=== PATIENT | male | born 1960 | race Caucasian/White ===

== ENCOUNTER 2022-05-26 22:06 | Emergency (ER) | payer MEDICAID, SELFPAY ==
[2022-05-26] VITALS (13 sets, daily range): BP systolic 107–123; BP diastolic 69–90; PULSE 53–59; RESP 16; TEMP 36.7; O2SAT 95–99
--- NOTE | 2022-05-26 22:00 | RT.EKG_ITS ---
APPROVED REPORT Exam: Resting ECG Reason for Exam: sob Patient Location: E HR:57 bpm ECG Measurements Heart Rate 57 AXIS IL 165 P 14 QRSd 96 QRS -56 QT 412 T 67 QTc 402 Conclusion Sinus bradycardia...rate< 60 Inferior infarct, old...Q >35mS, II III aVF sinus bradycardia, normal axis, normal intervals, non ischemic
--- NOTE | 2022-05-26 22:30 | DI.RAD_ITS ---
Exam(s) XR CHEST 2V PA LATERAL EXAM: XR CHEST 2V PA LATERAL CLINICAL HISTORY: syncope TECHNIQUE: 2D digital imaging was performed. COMPARISON: No exams were available for comparison FINDINGS: Leads overlie the chest. HEART: Normal size. Aorta: Not dilated. Mildly tortuous. PULMONARY VASCULATURE: Normal. LUNGS: Marked emphysematous changes, greatest in the upper lobes where there are large bulla. No sup erimposed infiltrate, effusion or pulmonary edema. PLEURAL SPACE: No pleural effusion or pneumothorax. BONE:Unremarkable for age. IMPRESSION: Emphysematous changes. No acute abnormality. DATA REPOSITORY: RADIATION DOSE DELIVERED:
--- NOTE | 2022-05-26 22:30 | DI.CT_ITS ---
Exam(s) CT HEAD WO EXAM: CT HEAD WO CLINICAL HISTORY: ams. TECHNIQUE: Imaging Protocol: Axial computed tomography images with coronal and sagittal reformatted images were created and reviewed COMPARISON: No exams were available for comparison FINDINGS: Ventricles and Extra axial spaces: Normal in size and morphology for the patient's age. Hemorrhage: None. Cerebral parenchyma: Normal. Midline shift: None. Brainstem/Cerebellum: Normal. Calvarium: Normal. Visualized Paranasal sinuses/Mastoids: Clear. Soft Tissues: Unremarkable. IMPRESSION: No acute intracranial process. RADIATION DOSE DELIVERED: 820.59mGy.cm Total DLP DATA REPOSITORY: All CT scans at this facility are submitted to the National Radiology Data Registry (NRDR) Dose Index Registry (DIR) with the [employer] (ACR). RADIATION OPTIMIZATION: All CT scans at this facility use at least one of these dose optimization te chniques: automated exposure control; mA and/or kV adjustment per patient size (includes targeted exa ms where dose is matched to clinical indication); or iterative reconstruction.
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
[2022-05-26 23:16] LABS: Abs Immature Grans 0.01 10^3/uL (0.0-0.06); Absolute Basophil Count 0.04 10^3/uL (0.0-0.2); Absolute Eosinophil Count 0.08 10^3/uL (0.0-0.7); Absolute Lymphocyte Count 3.63 10^3/uL (1.2-3.4); Absolute Monocyte Count 0.61 10^3/uL (0.1-0.8); Absolute Neutrophil Count 3.65 10^3/uL (1.2-6.7); Basophils % 0.5; HCT 45.1 % (40.0-50.0); HGB 15.3 g/dL (13.5-17.5); Immature Grans % 0.1; Lymphocytes % 45.3; MCH 31.5 pg (27.0-33.0); MCHC 33.9 % (32.0-36.0); MCV 93 fL (80-95); MPV 9.1 fL (8.0-11.0); Monocytes % 7.6; Neutrophils % 45.5; Platelet Count 304 10^3/uL (130-400); RBC 4.86 10^6/uL (4.36-5.78); RDW 12.5 % (11.8-14.1); RDW-SD 42.7 fL; WBC 8.02 10^3/uL (4.4-10.8)
[2022-05-26] MEDS: Normal Saline 1,000 ML 1000 ML IV (23:17)
[2022-05-26 23:39] LABS: Prothrombin Time 10.1 sec (9.3-11.0)
[2022-05-26 23:47] LABS: ALT 27 U/L (16-63); AST 30 U/L (15-37); Albumin 3.9 g/dL (3.4-5.0); Alkaline Phosphatase 121 U/L (46-116); Anion Gap 6.2 mmol/L (3-11); BUN 11 mg/dL (7-18); Bilirubin, Total 0.4 mg/dL (0.2-1.0); CO2 28.8 mmol/L (21.0-32.0); CREATININE 0.9 mg/dL (0.70-1.30); Calcium 9.7 mg/dL (8.5-10.1); Chloride 105 mmol/L (98-107); Estimated GFR 96.57 (mL/min/1.73m2); Glucose 104 mg/dL (74-106); Magnesium 2.4 mg/dL (1.8-2.4); Potassium 4.3 mmol/L (3.5-5.1); Sodium 140 mmol/L (136-145); TSH (W/Ref FT4) 5.11 uIU/mL (0.36-3.74); Total Protein 7.8 g/dL (6.4-8.2); Troponin I < 50 ng/L (<or=60)
--- NOTE | 2022-05-26 23:52 | DI.VRAD_ITS ---
PROCEDURE INFORMATION: Exam: CT Head Without Contrast Exam date and time: 05/26/2022 11:35 PM Age: 62 years old Clinical indication: Altered mental status/memory loss; Confusion or disorientation; Patient HX: AMS TECHNIQUE: Imaging protocol: Computed tomography of the head without contrast. Radiation optimization: All CT scans at this facility use at least one of these dose optimization techniques: automated exposure control; mA and/or kV adjustment per patient size (includes targeted exams where dose is matched to clinical indication); or iterative reconstruction. COMPARISON: No relevant prior studies available. FINDINGS: Brain: No intracranial hemorrhage or extra-axial fluid collection. No evidence of mass effect or midline shift. Conley-white matter differentiation is intact. Cerebral ventricles: No ventriculomegaly. Paranasal sinuses: Unremarkable. No fluid levels. Mastoid air cells: Unremarkable. Bones/joints: No acute calvarial fracture. Soft tissues: Scalp soft tissues are unremarkable. IMPRESSION: No acute intracranial pathology. Dictated and Authenticated by: Saran Horvath MD. Ordering:CHAVO Sheikh MD
--- NOTE | 2022-05-26 23:53 | DI.VRAD_ITS ---
PROCEDURE INFORMATION: Exam: XR Chest Exam date and time: 05/26/2022 11:43 PM Age: 62 years old Clinical indication: Patient HX: Syncope. AMS TECHNIQUE: Imaging protocol: Radiologic exam of the chest. Views: 2 views. COMPARISON: No relevant prior studies available. FINDINGS: Lungs: Lucencies along the superomedial left hemithorax may reflect bullous changes. No focal areas of consolidation. Pleural spaces: No pleural effusion. No pneumothorax. Heart/Mediastinum: Cardiac and mediastinal silhouettes are unremarkable. Bones/joints: No acute osseus lesion or fracture. IMPRESSION: Lucencies along the superomedial left hemithorax may reflect bullous changes. Recommend follow-up chest CT. Dictated and Authenticated by: Saran Horvath MD. Ordering:CHAVO Sheikh MD
[2022-05-26 23:54] LABS: ETHANOL BLOOD < 3.0 mg/dL (<10)
[2022-05-27] VITALS (42 sets, daily range): BP systolic 97–129; BP diastolic 57–106; PULSE 49–65; RESP 14–33; TEMP 36.7; O2SAT 90–96
[2022-05-27 00:03] LABS: D-Dimer 455 ng/mlFEU (<500)
[2022-05-27 00:11] LABS: FREE T4 1.04 ng/dL (0.76-1.46)
[2022-05-27 00:12] LABS: COVID-19 PCR Negative (Negative); Influenza A PCR Negative (Negative); Influenza B PCR Negative (Negative); RSV PCR Negative (Negative)
[2022-05-27 00:15] LABS: Source Nasopharynx
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
[2022-05-27] MEDS: clonazePAM 0.5 MG TAB PO ×2 (00:29→06:00)
== END 2022-05-27 06:04 | disposition home or self-care (01) ==
PROVIDERS: Physician Assistant; Emergency Provider Emergency Medicine
DX: F32.A Depression, unspecified (principal); F41.0 Panic disorder [episodic paroxysmal anxiety]; G47.00 Insomnia, unspecified; R06.02 Shortness of breath; R55 Syncope and collapse; Z20.822 Contact with and (suspected) exposure to COVID-19
CPT/HCPCS: 80053; 87637; 93005; 96360; 99284; 70450; 71046; 80320; 83735; 84439; 84443; 84484; 85025; 85379; 85610; 93010

== ENCOUNTER 2022-10-30 11:34 | Emergency (ER) | payer MEDICAID, SELFPAY ==
[2022-10-30 11:38] VITALS: BP 115/81; PULSE 66; RESP 15; TEMP 36.6; O2SAT 97
--- NOTE | 2022-10-30 12:11 | DI.RAD_ITS ---
Exam(s) XR FOOT LT LIMITED EXAM: XR FOOT LT LIMITED CLINICAL HISTORY: attn 1st mtp joint, pain after fall. TECHNIQUE: 2D digital imaging was performed of the left foot. Two images were obtained. AP and lat eral views were obtained. COMPARISON: No exams were available for comparison FINDINGS: BONES: No acute fracture is present. No bony destructive lesion is seen. JOINTS: No dislocation present. There are mild degenerative changes seen at the 1st MTP joint with keegan int space narrowing and osteophytes. SOFT TISSUE: Normal. IMPRESSION: No acute fracture or dislocation. DATA REPOSITORY: RADIATION DOSE DELIVERED:
--- NOTE | 2022-10-30 12:14 | ED.GENADUL_ITS ---
Discharge Plan Disposition Patient Disposition: Home Condition: Good Discharge Details Clinical Impression: Pain of left great toe Primary Care Provider: None,None ED Provider: Marko Jalloh Home Meds and New Rx's Prescriptions: No Action allopurinol 100 mg Tablet 100 mg PO DAILY Discharge Instructions Instructions: Metatarsalgia (DC) Additional Instructions: At this time the x-ray shows no evidence of fracture, however I am concerned that you may have damaged your flexor tendon for your great toe. Please utilize the walking boot for the next 1 to 2 weeks. Take Tylenol and Motrin as needed for pain. If you have continued pain after this means of treatment you may need to follow-up with an work station support specialist for further assessment. If you notice any worsening of your symptoms, or any new symptoms such as vomiting, diarrhea, fever, chills, shortness of breath, chest pain, numbness, weakness, or fainting , please return immediately to the emergency department for reevaluation. Please follow up with your primary care provider as soon as possible for reassessment and reevaluation. As always, it was a pleasure participating in your medical care today. Medical Decision Making This is a 62-year-old male who presents today for evaluation of left great toe pain. Patient states that about a week ago he was walking on slippery rocks when the majority of his weight was focused on his toes on the left foot, he pushed off in the foot was at the same time hyper dorsiflex secondary to the sleepiness of the rock. He thinks he may have heard a pop, but he did develop immediate pain around the great toe on the left foot. This continued for the next few days, and was accompanied by bruising around the base of the foot. Pain has persisted, and is present whenever he ambulates. He improved only with rest. He denies any numbness or tingling. No other complaints at this time. Demonstrates bruising beneath the great toe of the left foot and the MTP joint. Pain and tenderness there, slight limitation in flexion, he is able to bend to about 45 degrees but not able to cross the toe. He is able to call the other toes though comparatively. Concern for partial tear of the flexor digitorum longus. Will give walking boot, recommend NSAIDs for home use. Recommend follow-up with orthopedics if no improvement with this treatment modality over the next 1 to 2 weeks. Patient still demonstrates good control strength and movement of the great toe, no indication for immediate surgical intervention. Discussed red flags for which to return. I have extensively reviewed the treatment plan and discharge instructions with the patient and their family. I have addressed all patient concerns at this time. The patient and family was made aware of what symptoms to monitor for that would warrant a return to the emergency department. Discussed the plan with the patient and family, they demonstrate verbal understanding and agreement with our assessment and plan at this time. The documentation in this chart was dictated using [employer] dictation software. Please excuse any dictation errors. FINDINGS: BONES: No acute fracture is present. No bony destructive lesion is seen. JOINTS: No dislocation present. There are mild degenerative changes seen at the 1st MTP joint with joint space narrowing and osteophytes. SOFT TISSUE: Normal. IMPRESSION: No acute fracture or dislocation. HPI General Date/Time Provider Initiated Documentation: 10/30/22 11:50 . HPI Narrative: This is a 62-year-old male who presents today for evaluation of left great toe pain. Patient states that about a week ago he was walking on slippery rocks when the majority of his weight was focused on his toes on the left foot, he pushed off in the foot was at the same time hyper dorsiflex secondary to the sleepiness of the rock. He thinks he may have heard a pop, but he did develop immediate pain around the great toe on the left foot. This continued for the next few days, and was accompanied by bruising around the base of the foot. Pain has persisted, and is present whenever he ambulates. He improved only with rest. He denies any numbness or tingling. No other complaints at this time. Related Data Home Medications Medication Instructions Recorded Confirmed allopurinol 100 mg tablet 100 mg PO DAILY 10/30/22 10/30/22 Allergies Allergy/AdvReac Type Severity Reaction Status Date / Time Penicillins Allergy Unknown Other (See Unverified 10/30/22 11:43 Comment) General Stated Complaint: Orthopedic SHEELA: 4 Review of Systems All systems reviewed & are unremarkable except as noted in HPI and below PFSH All Active Problems Pain of left great toe (Acute) Social History Smoking risk assessment performed?: No Exam Narrative Exam Narrative: 1.Const: Well-nourished, Well-developed, appearing stated age 2.Eyes: PERRL, no conjunctival injection, and symmetrical lids. 3.ENT: Atraumatic external nose and ears. Moist MM. Neck: Symmetric, trachea midline, No thyromegaly. 4.CVS: +S1/S2, No murmurs or gallops. Peripheral pulses 2+ and equal in all extremities. Brisk capillary refill in all extremities. 5.RESP: Unlabored respiratory effort. Clear to auscultation bilaterally. No wheezes rales or rhonchi 6.GI: Soft, Nontender/Nondistended, No hepatosplenomegaly. No guarding or rebound. 7.MSK: Left foot demonstrates bruising beneath the left great toe and the MTP joint of the first digit. Pain with palpation at the MTP joint, pain with flexion of the great toe. Limitation of flexion of the left great toe compared to the right. Movement of all the other digits are unremarkable. Brisk capillary refill is present. Sensation intact. No other tenderness throughout the rest of the foot 8.Skin: Warm, Dry. No rashes or lesions. 9.Neuro: riprap man II-XII grossly intact. Sensation grossly intact, no focal neurologic deficits. 10.Psych: (AAO) x3. Appropriate mood and affect Course Vital Signs Vital signs: Vital Signs Temperature 36.6 C 10/30/22 11:38 Pulse 66 10/30/22 11:38 Respiratory Rate 15 10/30/22 11:38 Blood Pressure 115/81 10/30/22 11:38 Pulse Oximetry 97 10/30/22 11:38 Temperature 36.6 C 10/30/22 11:38 Temperature Source Skin 10/30/22 11:38 Pulse 66 10/30/22 11:38 Respiratory Rate 15 10/30/22 11:38 Blood Pressure 115/81 10/30/22 11:38 Pulse Oximetry 97 10/30/22 11:38 Oxygen Delivery Method Room Air 10/30/22 11:38 Oxygen Flow Rate 0 10/30/22 11:38 Pain Level 6 10/30/22 11:38
== END 2022-10-30 13:30 | disposition home or self-care (01) ==
PROVIDERS: Emergency Provider Student in an Organized Health Care Education/Training Program
DX: M79.675 Pain in left toe(s) (principal); M19.072 Primary osteoarthritis, left ankle and foot
CPT/HCPCS: 36415; 99283; 73620

== ENCOUNTER 2023-03-19 19:13 | Emergency (ER) | payer MEDICAID, SELFPAY ==
[2023-03-19] VITALS (22 sets, daily range): BP systolic 121–161; BP diastolic 76–99; PULSE 55–68; RESP 10–20; TEMP 36.4; O2SAT 92–100
--- NOTE | 2023-03-19 19:15 | RT.EKG_ITS ---
APPROVED REPORT Exam: Resting ECG Reason for Exam: SOB, anxiety Patient Location: E HR:60 bpm ECG Measurements Heart Rate 60 AXIS ND 168 P 8 QRSd 99 QRS 3 QT 404 T 80 QTc 404 Conclusion Sinus rhythm...normal P axis, V-rate 60- 99
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
[2023-03-19 19:28] LABS: Abs Immature Grans 0.03 10^3/uL (0.0-0.06); Absolute Basophil Count 0.05 10^3/uL (0.0-0.2); Absolute Lymphocyte Count 3.17 10^3/uL (1.2-3.4); Absolute Monocyte Count 0.75 10^3/uL (0.1-0.8); Absolute Neutrophil Count 4.98 10^3/uL (1.2-6.7); Basophils % 0.6; Eosinophils % 1.1; HCT 47.3 % (40.0-50.0); HGB 16.1 g/dL (13.5-17.5); Immature Grans % 0.3; Lymphocytes % 34.9; MCV 88 fL (80-95); MPV 8.9 fL (8.0-11.0); Monocytes % 8.3; Neutrophils % 54.8; Platelet Count 315 10^3/uL (130-400); RBC 5.37 10^6/uL (4.36-5.78); RDW 12.8 % (11.8-14.1); RDW-SD 41.1 fL; WBC 9.08 10^3/uL (4.4-10.8)
--- OUTSIDE RECORDS SUMMARY | 2023-03-19 19:32 | XMS_ITS | Continuity of Care Document ---
Author Name Unknown Organization [facility] Address [address] [place] [address] Encounter NCTY_AL Date(s): 11/12/22 - 11/12/22 [facility] [address] [place] [address] Discharge Disposition: Home or Self Care Attending Physician: Kalen Abdi MD Admitting Physician: Kalen Abdi MD Allergies, Adverse Reactions, Alerts No Known Medication Allergies Medications allopurinol 0 Refill(s) Start Date: 11/12/22 Status: Ordered Vital Signs Most recent to oldest [Reference Range]: 1 Temperature Temporal Artery [36-38 Deg C ] 37.1 Deg C (11/12/22 2:46 PM) Peripheral Pulse Rate [60-100 bpm] 69 bp m (11/12/22 2:46 PM) Respiratory Rate [12-24 br/min] 18 br/mi n (11/12/22 2:46 PM) Blood Pressure [90-140/60-90 mmHg] 116/8 1mmHg (11/12/22 2:46 PM) Weight Dosing 90.70 kg (11/12/22 3:06 PM) Weight Estimated 90.70 kg (11/12/22 2:46 PM) Height/Length Dosing 182.800 cm (11/12/22 3:06 PM) Height/Length Estimated 182.800 cm (11/12/22 2:46 PM) Social History Social History Type Response Tobacco Current everyday tob acco user Tobacco Use:. 1 PPD per day. Sex Male Emergency department Note * Ne [place]: PERFORM Event Display: ED Notes Authored Date: [id number] Patient Care team information Care Team Personnel Name: Luther Reza MD Position: Physician Member Role: ED Physician Address: Address: [address] [place] [phone] [place]
[2023-03-19 19:48] LABS: Salicylate 2.9 mg/dL (<2.8)
[2023-03-19 19:52] LABS: ALT 31 U/L (16-63); AST 19 U/L (15-37); Albumin 3.8 g/dL (3.4-5.0); Alkaline Phosphatase 121 U/L (46-116); Anion Gap 10.3 mmol/L (3-11); BUN 14 mg/dL (7-18); Bilirubin, Total 0.4 mg/dL (0.2-1.0); CO2 23.7 mmol/L (21.0-32.0); CREATININE 1.1 mg/dL (0.70-1.30); Calcium 9.8 mg/dL (8.5-10.1); Chloride 102 mmol/L (98-107); Estimated GFR 75.43 (mL/min/1.73m2); Glucose 157 mg/dL (74-106); Potassium 4.1 mmol/L (3.5-5.1); Sodium 136 mmol/L (136-145); TSH (W/Ref FT4) 4.18 uIU/mL (0.36-3.74); Total Protein 8.3 g/dL (6.4-8.2)
[2023-03-19 20:02] LABS: ETHANOL BLOOD < 3.0 mg/dL (<10)
[2023-03-19 20:12] LABS: Bilirubin Negative (Negative); Blood Small (Negative); Clarity Clear (Clear); Glucose Negative (Negative); Ketones Negative (Negative); Leukocyte Esterase Negative (Negative); Nitrite Negative (Negative); Specific Gravity <= 1.005 (1.005-1.025); Urobilinogen 0.2 mg/dL (Up to 0.2)
[2023-03-19 20:15] LABS: FREE T4 1.01 ng/dL (0.76-1.46)
[2023-03-19 20:21] LABS: Bacteria Few HPF (Negative); Epithelial Cells Negative HPF (Negative); WBC Negative HPF (0-5)
[2023-03-19 20:22] LABS: C & S Indicated? No; Casts Negative LPF (Negative); Crystals Negative HPF (Negative); Mucus Negative (Negative); RBC 0-2 HPF (0-2)
[2023-03-19 20:29] LABS: *AMPHETAMINES SCREEN URINE Negative (Negative); *BARBITURATES SCREEN URINE Negative (Negative); *BENZODIAZEPINES SCREEN URINE Negative (Negative); Cannabinoids THC Positive (Negative); Cocaine Screen,Urine Negative (Negative); METHADONE URINE SCREEN Negative (Negative); OPIATES URINE SCREEN Negative (Negative)
[2023-03-19 20:31] LABS: Tricyclic Antidepressants Negative (Negative)
[2023-03-19] MEDS: Melatonin 3 MG TAB PO (21:24)
[2023-03-19] MEDS: hydrOXYzine HCL 25 MG TAB PO (21:24)
== END 2023-03-19 21:24 | disposition home or self-care (01) ==
PROVIDERS: Emergency Provider Nurse Practitioner Acute Care
DX: G47.00 Insomnia, unspecified (principal); F41.9 Anxiety disorder, unspecified; F17.210 Nicotine dependence, cigarettes, uncomplicated
CPT/HCPCS: 36415; 80053; 80307; 93005; 99283; 80320; 80329; 81003; 81015; 84439; 84443; 85025; 93010

== ENCOUNTER 2023-05-23 14:48 | Outpatient (REF) | payer MEDICAID, SELFPAY ==
[2023-05-23 18:28] LABS: Abs Immature Grans 0.03 10^3/uL (0.0-0.06); Absolute Basophil Count 0.07 10^3/uL (0.0-0.2); Absolute Eosinophil Count 0.13 10^3/uL (0.0-0.7); Absolute Lymphocyte Count 3.35 10^3/uL (1.2-3.4); Absolute Monocyte Count 0.89 10^3/uL (0.1-0.8); Absolute Neutrophil Count 5.34 10^3/uL (1.2-6.7); Basophils % 0.7; Eosinophils % 1.3; HCT 48.7 % (40.0-50.0); HGB 16.3 g/dL (13.5-17.5); Immature Grans % 0.3; Lymphocytes % 34.1; MCH 29.9 pg (27.0-33.0); MCHC 33.5 % (32.0-36.0); MCV 89 fL (80-95); MPV 9.5 fL (8.0-11.0); Monocytes % 9.1; Neutrophils % 54.5; Platelet Count 324 10^3/uL (130-400); RBC 5.45 10^6/uL (4.36-5.78); RDW 12.7 % (11.8-14.1); RDW-SD 41.2 fL; WBC 9.81 10^3/uL (4.4-10.8)
[2023-05-23 18:56] LABS: ALT 31 U/L (16-63); AST 15 U/L (15-37); Albumin 3.9 g/dL (3.4-5.0); Alkaline Phosphatase 125 U/L (46-116); Anion Gap 9.1 mmol/L (3-11); BUN 14 mg/dL (7-18); Bilirubin, Total 0.4 mg/dL (0.2-1.0); CO2 28.9 mmol/L (21.0-32.0); Calcium 10.3 mg/dL (8.5-10.1); Chloride 103 mmol/L (98-107); Estimated GFR 84.57 (mL/min/1.73m2); Glucose 82 mg/dL (74-106); Potassium 4.8 mmol/L (3.5-5.1); Sodium 141 mmol/L (136-145)
== END 2023-05-23 14:49 | disposition home or self-care (01) ==
LOC: NCHCN 14:48
PROVIDERS: PCP Student in an Organized Health Care Education/Training Program; Visit Provider Student in an Organized Health Care Education/Training Program
DX: I25.10 Atherosclerotic heart disease of native coronary artery without angina pectoris (principal)
CPT/HCPCS: 80053; 85025

== ENCOUNTER → 2023-06-10 02:44 | Outpatient (CLI) | payer MEDICAID, SELFPAY ==
--- NOTE | 2023-06-10 | DI.CTLCSR_ITS ---
Exam(s) CT CHEST LUNG CANCER SCREEN EXAM: CT CHEST LUNG CANCER SCREEN CLINICAL HISTORY: F17.210 Nicotine dependence,cigarettes,uncomplicated TECHNIQUE: Imaging Protocol: Axial computed tomography images with coronal and sagittal reformatted images were created and reviewed. Low dose screening protocol. COMPARISON: CT LOW DOSE CT LUNG CANCER SCREENING from 05/21/2018 report not available. FINDINGS: Tracheobronchial tree: No bronchiectasis or mucus plugging.. Mediastinum and Sheba: No dominant adenopathy or fluid collection. Pulmonary parenchyma: No consolidation or dominant measurable mass. Large bulla at the lung apices. Small mild scarring left lower lobe. Lung Nodules: None. Pleura: No effusion. No pneumothorax. Heart: The heart is mildly dilated. Mild coronary artery calcifications are seen. Aorta: Thoracic aorta non-dilated. Upper abdomen: Unremarkable. Bones: Unremarkable for age. Soft Tissues: Unremarkable. IMPRESSION: No suspicious pulmonary nodules. Lung RADS Cat 1 - Negative: No nodules and definitely benign nodules Lung-RADS 1.0 CATEGORIES: Category 0 - Prior chest CT exam(s) being located for comparison. Category 1 - Annual screening in 12 months. No nodules or definitely benign nodules. Category 2 - Annual screening in 12 months. Benign appearance. Nodules with low likelihood of becomin g active cancer. Category 3 - 6-month follow-up. Probably benign. Short-term follow-up suggested. Nodules with low lik elihood of becoming active cancer. Category 4A - 3-month follow-up and CT/PET if >8 mm in size. Suspicious finding. Findings which requi re additional testing. Category 4B - Findings which require additional testing and tissue sampling. Category 4X - Category 3 or 4 nodules with additional features or imaging findings that increases the suspicion of malignancy. Modifier S- Potentially clinically significant findings (non lung cancer) RADIATION DOSE DELIVERED: 106.44mGy.cm Total DLP DATA REPOSITORY: All CT scans at this facility are submitted to the National Radiology Data Registry (NRDR) Dose Index Registry (DIR) with the [employer] (A[employer]). RADIATION OPTIMIZATION: All CT scans at this facility use at least one of these dose optimization te chniques: automated exposure control; mA and/or kV adjustment per patient size (includes targeted exa ms where dose is matched to clinical indication); or iterative reconstruction.
== END ==
PROVIDERS: PCP Student in an Organized Health Care Education/Training Program; Visit Provider Student in an Organized Health Care Education/Training Program
DX: Z12.2 Encounter for screening for malignant neoplasm of respiratory organs (principal); F17.210 Nicotine dependence, cigarettes, uncomplicated
CPT/HCPCS: 71271

== ENCOUNTER 2023-06-26 07:57 | Emergency (ER) | payer MEDICAID, SELFPAY ==
[2023-06-26 08:03] VITALS: BP 114/77; PULSE 69; RESP 18; O2SAT 99
--- NOTE | 2023-06-26 08:15 | DI.CT_ITS ---
Exam(s) CT ABDOMEN PELVIS W EXAM: CT ABDOMEN PELVIS W CLINICAL HISTORY: abdominal and rectal pain TECHNIQUE: Imaging Protocol: Axial computed tomography images with coronal and sagittal reformatted images were created and reviewed. CONTRAST MATERIAL: Intravenous: Omnipaque 350 Contrast volume:100 mL Oral: No COMPARISON: CT LOW DOSE CT LUNG CANCER SCREENING from 05/21/[address] CHEST LUNG CANCER SCREEN from 06/10/2023 FINDINGS: ABDOMEN: Lung Bases: There is a large bulla seen in the left lung base anteriorly. Stable scarring is seen in the left lingula and left lower lobe. Liver: Normal density. No suspicious masses are seen. Portal, Superior Mesenteric, and Splenic Veins: Unremarkable. Gallbladder and Biliary Tract: No radiodense calculus or dilation. Pancreas: Normal density, no abnormal calcifications or inflammatory process. Spleen: Normal. Adrenals: No masses seen. Kidneys: Normal size, contour and axis. No radiodense stones or obstructive uropathy. There is a 6 mm hyperdense nodule along the lateral aspect of the left kidney. There is a 5 mm hypodense nodule in the superior pole of the left kidney. This likely reflects a simple cyst. Abdominal Aorta: Abdominal portion non-dilated. Atherosclerotic calcification is present. Bowel: There are fluid-filled loops of small bowel present which may represent an ileus but also can be seen with diarrheal illness/enteritis. The stomach is incompletely distended limiting evaluation. There is no bowel wall thickening. No findings to suggest obstruction. The appendix is nondistend ed and air-filled. No appendiceal wall thickening or inflammation is seen. There are few hyperdense foci seen within the appendix which may represent appendicoliths. Peritoneal Cavity: No ascites, collection or mesenteric inflammatory response. No free air. Lymph Nodes: Within normal limits. Bones: Within normal limits for the patient's age. Soft Tissues: There is a fat containing left inguinal hernia. PELVIS: Bladder: There is mild thickening of the wall of the urinary bladder. This is nonspecific. Reproductive Organs: Prostate gland is mildly enlarged. Lymph Nodes: Within normal limits. Bones: Within normal limits for the patient's age. IMPRESSION: 1. Fluid-filled loops of small bowel. This can be seen with a diarrheal illness/enteritis. No evide nce of bowel obstruction. 2. 6 mm hyperdense nodule in the left kidney. Renal mass cannot be excluded. This may also represen t hemorrhagic or complicated cyst. Outpatient MRI of the kidneys is recommended for further evaluati on. 3. Enlarged prostate gland. 4. Mild thickening of the wall of the urinary bladder. This is nonspecific. This can be seen with c hronic bladder outlet obstruction or cystitis. Please correlate clinically. RADIATION DOSE DELIVERED: 989.94mGy.cm Total DLP DATA REPOSITORY: All CT scans at this facility are submitted to the National Radiology Data Registry (NRDR) Dose Index Registry (DIR) with the [employer] (ACR). RADIATION OPTIMIZATION: All CT scans at this facility use at least one of these dose optimization te chniques: automated exposure control; mA and/or kV adjustment per patient size (includes targeted exa ms where dose is matched to clinical indication); or iterative reconstruction.
--- NOTE | 2023-06-26 08:15 | DI.US_ITS ---
Exam(s) US SCROTUM EXAM: US SCROTUM CLINICAL HISTORY: right testicular pain, eval also for hernia. TECHNIQUE: Scrotal ultrasound performed using grayscale, color-flow and spectral Doppler analysis. COMPARISON: No exams were available for comparison FINDINGS: Right testicle: 3.7 x 3.2 x 3.1 cm Echogenicity: Normal. Contour: Smooth. Mass: None seen. Microlithiasis: None. Hydrocele: None. Variocele: None. Hernia: No peristalsing bowel loop identified. Epididymis: There is heterogeneity and increased vascularity of the right epididymis concerning for e pididymitis. Left testicle: 3.3 x 1.7 x 3.2 cm Echogenicity: Normal. Contour: Smooth. Mass: None seen. Microlithiasis: None. Hydrocele: None. Variocele: None. Hernia: No peristalsing bowel loop identified. Epididymis: Normal. There is mild diffuse scrotal thickening. DOPPLER: Color: Symmetric and uniform, no hyperemia. IMPRESSION: 1. Normal appearing bilateral testicles. 2. Findings suspicious for right epididymitis. 3. Findings were discussed with Esther Lipscomb at 10:47 a.m. on 06/26/2023. DATA REPOSITORY:
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
[2023-06-26] MEDS: HYDROmorphone 2 MG/ML SYR 1 MG IVP (08:51)
[2023-06-26] MEDS: Normal Saline 1,000 ML 1000 ML IV (08:51)
[2023-06-26 08:57] LABS: Abs Immature Grans 0.05 10^3/uL (0.0-0.06); Absolute Basophil Count 0.04 10^3/uL (0.0-0.2); Absolute Eosinophil Count 0.06 10^3/uL (0.0-0.7); Absolute Lymphocyte Count 1.65 10^3/uL (1.2-3.4); Absolute Monocyte Count 0.86 10^3/uL (0.1-0.8); Absolute Neutrophil Count 9.19 10^3/uL (1.2-6.7); Basophils % 0.3; Eosinophils % 0.5; HCT 48.2 % (40.0-50.0); HGB 16.4 g/dL (13.5-17.5); Immature Grans % 0.4; Lymphocytes % 13.9; MCV 88 fL (80-95); MPV 9.2 fL (8.0-11.0); Monocytes % 7.3; Neutrophils % 77.6; Platelet Count 271 10^3/uL (130-400); RBC 5.47 10^6/uL (4.36-5.78); RDW 12.4 % (11.8-14.1); RDW-SD 40.4 fL; WBC 11.84 10^3/uL (4.4-10.8)
[2023-06-26] MEDS: HYDROmorphone 2 MG/ML SYR IVP (09:43)
[2023-06-26 09:46] LABS: ALT 27 U/L (16-63); AST 14 U/L (15-37); Albumin 3.6 g/dL (3.4-5.0); Alkaline Phosphatase 115 U/L (46-116); Anion Gap 8.5 mmol/L (3-11); BUN 19 mg/dL (7-18); Bilirubin, Total 0.6 mg/dL (0.2-1.0); C-Reactive Protein 6.31 mg/dL (<or=0.5); CO2 27.5 mmol/L (21.0-32.0); CREATININE 1.1 mg/dL (0.70-1.30); Calcium 9.6 mg/dL (8.5-10.1); Chloride 100 mmol/L (98-107); Estimated GFR 75.43 (mL/min/1.73m2); Glucose 115 mg/dL (74-106); Lipase 53 U/L (16-77); Potassium 4.3 mmol/L (3.5-5.1); Sodium 136 mmol/L (136-145); Total Protein 8.6 g/dL (6.4-8.2)
[2023-06-26] MEDS: Normal Saline - Diluent 50 ML VIAL IJ (10:03)
[2023-06-26] MEDS: Omnipaque 350 MG/ML 100 ML BTL IJ (10:03)
[2023-06-26 11:19] VITALS: BP 131/77; PULSE 68; TEMP 36.8; O2SAT 97
[2023-06-26 11:35] VITALS: TEMP 36.8
[2023-06-26 11:38] VITALS: BP 131/77; PULSE 68; RESP 16; TEMP 36.8; O2SAT 97
[2023-06-26 11:48] LABS: Bilirubin Negative (Negative); Blood Small (Negative); Clarity Clear (Clear); Glucose Negative (Negative); Ketones Negative (Negative); Leukocyte Esterase Trace (Negative); Nitrite Negative (Negative); Urobilinogen 0.2 mg/dL (Up to 0.2); pH 5.5 (5-8)
[2023-06-26 11:53] LABS: *AMPHETAMINES SCREEN URINE Negative (Negative); *BARBITURATES SCREEN URINE Negative (Negative); *BENZODIAZEPINES SCREEN URINE Negative (Negative); Cannabinoids THC Positive (Negative); Cocaine Screen,Urine Negative (Negative); METHADONE URINE SCREEN Negative (Negative); OPIATES URINE SCREEN Positive (Negative); Tricyclic Antidepressants Negative (Negative)
[2023-06-26 12:17] LABS: Bacteria Few HPF (Negative); Epithelial Cells Rare HPF (Negative); RBC 0-2 HPF (0-2); WBC >50 HPF (0-5)
[2023-06-26 12:18] LABS: C & S Indicated? Yes; Crystals Negative HPF (Negative); Mucus Trace (Negative)
--- NOTE | 2023-06-26 17:00 | NUR.NOTE ---
Referral faxed to [facility] Urology for renal mass to be seen in 1 to 2 weeks. Nursing Note:
== END 2023-06-26 11:39 | disposition home or self-care (01) ==
PROVIDERS: Emergency Provider Physician Assistant; PCP Student in an Organized Health Care Education/Training Program
DX: N45.1 Epididymitis (principal); K59.00 Constipation, unspecified; I25.10 Atherosclerotic heart disease of native coronary artery without angina pectoris; F17.210 Nicotine dependence, cigarettes, uncomplicated
CPT/HCPCS: 36415; 80053; 80307; 83690; 96361; 96374; 96376; 99285; 74177; 76870; 81003; 81015; 85025; 86140; 87086; 99284; J1170; J3490

== ENCOUNTER 2023-11-13 11:17 | Emergency (ER) | payer MEDICAID, SELFPAY ==
[2023-11-13 11:20] VITALS: BP 116/83; PULSE 58; RESP 12; TEMP 36.4; O2SAT 96
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
[2023-11-13 11:31] VITALS: BP 116/83; PULSE 58; RESP 12; TEMP 36.4; O2SAT 96
== END 2023-11-13 12:04 | disposition home or self-care (01) ==
LOC: ER 12:07
PROVIDERS: Emergency Provider Emergency Medicine; PCP Student in an Organized Health Care Education/Training Program
DX: H57.11 Ocular pain, right eye (principal); H20.011 Primary iridocyclitis, right eye
CPT/HCPCS: 99283

== ENCOUNTER 2024-01-23 00:29 | Outpatient (CLI) | payer MEDICAID, SELFPAY ==
--- NOTE | 2024-01-23 07:00 | DI.US_ITS ---
Exam(s) US RENAL EXAM: US RENAL CLINICAL HISTORY: monitoring left renal cyst,N28.1. TECHNIQUE: Conley scale, color and spectral Doppler were used. COMPARISON: CT CT ABDOMEN PELVIS W from 06/26/2023 FINDINGS: Right kidney: 10.2cm Echogenicity: Normal Hydronephrosis: No Cyst or mass: No Nephrolithiasis: No Left kidney: 11.2cm Echogenicity: Normal Hydronephrosis: No Cyst or mass: No Nephrolithiasis: No Bladder:Normal. Prevoid vol:277 cc Postvoid vol:None cc Prostate volume 26 cc IMPRESSION: Negative renal ultrasound. The tiny renal cysts noted on CT are not visible by ultrasound. No fol low-up recommended. DATA REPOSITORY:
== END 2024-01-23 00:49 ==
LOC: DI 00:30
PROVIDERS: PCP Student in an Organized Health Care Education/Training Program; Visit Provider Nurse Practitioner Gerontology
DX: N28.1 Cyst of kidney, acquired (principal)
CPT/HCPCS: 76770

== ENCOUNTER 2024-06-23 03:17 | Emergency (ER) | payer MEDICAID, SELFPAY ==
[2024-06-23] VITALS (22 sets, daily range): BP systolic 114–140; BP diastolic 83–92; PULSE 52–72; RESP 9–25; O2SAT 92–98
--- NOTE | 2024-06-23 03:00 | RT.EKG_ITS ---
APPROVED REPORT Exam: Resting ECG Reason for Exam: short of breath Patient Location: E HR:64 bpm ECG Measurements Heart Rate 64 AXIS WV 153 P -9 QRSd 93 QRS -25 QT 405 T 81 QTc 417 Conclusion Sinus rhythm...normal P axis, V-rate 60- 99 Nonspecific T abnrm, anterolateral leads...T <-0.10mV, I aVL V2-V6 appropriate intervals no ST segment or T wave abnormalities to suggest occlusive MT
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
[2024-06-23] MEDS: LORazepam 1 MG TAB 2 MG PO (03:44)
[2024-06-23] MEDS: Simethicone 80 MG CHEW 40 MG PO (03:44)
[2024-06-23 03:45] LABS: Abs Immature Grans 0.01 10^3/uL (0.0-0.06); Absolute Basophil Count 0.04 10^3/uL (0.0-0.2); Absolute Eosinophil Count 0.11 10^3/uL (0.0-0.7); Absolute Lymphocyte Count 3.36 10^3/uL (1.2-3.4); Absolute Monocyte Count 0.69 10^3/uL (0.1-0.8); Basophils % 0.4 %; Eosinophils % 1.2 %; HCT 45.4 % (40.0-50.0); HGB 15.5 g/dL (13.5-17.5); Immature Grans % 0.1 %; Lymphocytes % 36.5 %; MCH 30.5 pg (27.0-33.0); MCHC 34.1 % (32.0-36.0); MCV 89 fL (80-95); MPV 9.2 fL (8.0-11.0); Monocytes % 7.5 %; Neutrophils % 54.3 %; Platelet Count 278 10^3/uL (130-400); RBC 5.08 10^6/uL (4.36-5.78); RDW 12.8 % (11.8-14.1); RDW-SD 41.8 fL; WBC 9.21 10^3/uL (4.4-10.8)
--- NOTE | 2024-06-23 04:06 | DI.RAD_ITS ---
Exam(s) XR CHEST 2V PA LATERAL EXAM: XR CHEST 2V PA LATERAL CLINICAL HISTORY: short of breath TECHNIQUE: 2D digital imaging was performed of the chest. Two images were obtained. PA and lateral views were obtained. COMPARISON: CR,XR XR CHEST 2V PA LATERAL from 05/26/[address] CHEST LUNG CANCER SCREEN from 06/10/[address] ABDOMEN PELVIS W from 06/26/2023 FINDINGS: MEDIASTINUM: Normal. HEART: Normal. PULMONARY VASCULATURE: Normal. LUNGS: Marked emphysematous changes are present in the lungs particularly the left lung. The lungs a re hyperinflated with flattened diaphragms consistent with underlying COPD. No focal consolidating i nfiltrates are seen. PLEURAL SPACE: No pleural effusion or pneumothorax. BONE:Within normal limits for the patient's age. OTHER FINDINGS:Normal. IMPRESSION: 1. No acute pulmonary findings. 2. Marked emphysematous changes in the lungs. DATA REPOSITORY: RADIATION DOSE DELIVERED:
[2024-06-23 04:07] LABS: ALT 29 U/L (16-63); AST 15 U/L (15-37); Albumin 3.6 g/dL (3.4-5.0); Alkaline Phosphatase 145 U/L (46-116); Anion Gap 13.5 mmol/L (3-11); BUN 13 mg/dL (7-18); Bilirubin, Total 0.52 mg/dL (0.2-1.0); CO2 22.5 mmol/L (21.0-32.0); CREATININE 1.1 mg/dL (0.70-1.30); Calcium 9.7 mg/dL (8.5-10.1); Chloride 105 mmol/L (98-107); Estimated GFR 74.96 (mL/min/1.73m2); Glucose 114 mg/dL (74-106); Magnesium 1.7 mg/dL (1.8-2.4); NT-proBNP 79 pg/mL (<300); Potassium 3.8 mmol/L (3.5-5.1); Sodium 141 mmol/L (136-145); Total Protein 7.8 g/dL (6.4-8.2); Troponin I 12 ng/L (<or=76)
[2024-06-23 04:39] LABS: Troponin I 10 ng/L (<or=76)
--- NOTE | 2024-06-23 04:44 | DI.VRAD_ITS ---
PROCEDURE INFORMATION: Exam: XR Chest Exam date and time: 06/23/2024 3:57 AM Age: 64 years old Clinical indication: Shortness of breath TECHNIQUE: Imaging protocol: Radiologic exam of the chest. Views: 2 views. COMPARISON: No relevant prior studies are available for comparison. FINDINGS: Lungs: Hyperinflated lungs. Correlate clinically for obstructive pulmonary disease. Pleural spaces: No large pleural effusion seen. Heart/Mediastinum: No cardiomegaly. Bones/joints: No acute abnormality. Gastrointestinal tract: Gas-filled bowel loops in the visualized abdomen. IMPRESSION: No acute findings to explain reported symptoms. Dictated and Authenticated by: Madison Blackburn MD. Orderin Francis Fox MD
== END 2024-06-23 08:25 | disposition home or self-care (01) ==
PROVIDERS: Emergency Provider Student in an Organized Health Care Education/Training Program; PCP Student in an Organized Health Care Education/Training Program
DX: F41.9 Anxiety disorder, unspecified (principal); R06.02 Shortness of breath; F17.210 Nicotine dependence, cigarettes, uncomplicated
CPT/HCPCS: 80053; 93005; 99284; 71046; 83735; 83880; 84484; 85025; 93010; 99283

== ENCOUNTER 2024-07-10 02:54 | Emergency (ER) | payer MEDICAID, SELFPAY ==
[2024-07-10 02:59] VITALS: BP 108/77; PULSE 62; RESP 18; TEMP 36.8; O2SAT 97
--- NOTE | 2024-07-10 03:27 | W.ED.GENAD ---
Discharge Plan Disposition Patient Disposition: Home Condition: Good Discharge Details Clinical Impression: Anxiety, Insomnia Primary Care Provider: Guido Mariee ED Provider: Dominique Blanco Home Meds and New Rx's Prescriptions: New lorazepam 0.5 mg Tablet 1.5 mg PO .FOR HOME USE-0.5MG Qty: 1 0RF Continued atorvastatin 10 mg tablet 10 mg PO DAILY allopurinol 100 mg Tablet 100 mg PO DAILY magnesium 500 mg tablet 500 mg PO DAILY multivitamin [Daily Multi-Vitamin] Tablet 1 tab PO DAILY melatonin 3 mg capsule 3 mg PO HS PRNQty: 7 0RF Discharge Instructions Instructions: Lorazepam, Anxiety, Adult ED Additional Instructions: You can take one 0.5mg lorazepam if needed at bedtime. Do not drive after taking this medication. Use extra caution at home as this medication can increase your risk of falls. Call your primary care doctor first thing Friday to schedule an appointment to be seen that day. Return to the emergency department for new or worsening symptoms. Referrals: Guido Mariee [Primary Care Provider] - [facility] General Mode of arrival: ambulatory. Date/Time Provider Initiated Documentation: 07/10/24 03:00. Limitations to Documentation: no limitations. Information obtained by: patient and old records reviewed. HPI Narrative: 64yo M with hx gout, HLD, anxiety, presenting for anxiety and insominia. Has had several months of worsening anxiety in the setting of 'being stuck at home' due to financial issues and transportation issues. Has had difficultly sleeping for 2- 3 nights, sleeping on 2-3 hours a night, and this has made the anxiety significantly worse. Associated belching and farting (mostly at night); anxiety seems somewhat improved after he belches a lot. Not currently on any anxiety medication; does have a history of panic attacks about a year ago and then several weeks ago when he was seen in this ED. Unable to followup with PCP since that visit due to transportation issues; car was finally fixed this afternoon. Denies SI/HI/AH/VH. Otherwise in his usual state of health with no fevers, chills, rash, chest pain, shortness of breath, abdominal pain, numbness, weakness, or other concerns. Related Data Home Medications ?Medication ?Instructions ?Recorded ?Confirmed allopurinol 100 mg tablet 100 mg PO DAILY 10/30/22 07/10/24 melatonin 3 mg capsule 3 mg PO HS PRN #7 caps 03/19/23 07/10/24 atorvastatin 10 mg tablet 10 mg PO DAILY 05/29/23 07/10/24 magnesium 500 mg tablet 500 mg PO DAILY 06/26/23 07/10/24 multivitamin (Daily Multi-Vitamin 1 tab PO DAILY 06/26/23 07/10/24 tablet) lorazepam 0.5 mg tablet 1.5 mg (3 x 0.5 mg) PO .FOR HOME 07/10/24 USE-0.5MG #1 tab Previous Rx's ?Medication ?Instructions ?Recorded melatonin 3 mg capsule 3 mg PO HS PRN #7 caps 03/19/23 lorazepam 0.5 mg tablet 1.5 mg (3 x 0.5 mg) PO .FOR HOME 07/10/24 USE-0.5MG #1 tab Allergies Allergy/AdvReac Type Severity Reaction Status Date / Time Lanolin (Wool alcohols) Allergy Unknown unknown Verified 07/10/24 03:03 Penicillins Allergy Unknown Other (See Verified 07/10/24 03:03 Comment) General Stated Complaint: Anxiety SHEELA: 3 Review of Systems Narrative: see HPI Exam Narrative Exam Narrative: General: Alert, well appearing, well nourished, in no acute distress. Head: Normocephalic, atraumatic Neck: Trachea midline, ?Neck supple. Cardiac: ?RRR Resp: No respiratory distress. CTAB. Abd: ?Non-distended Extremities: ?No deformities.? No peripheral edema. Neurologic: GCS 15. ? Moves all extremities freely against gravity Psych: Calm, cooperative.? Well groomed.? Mood anxious, affect congruent.? Speech with normal volume, rate, rythym and tone. Linear and goal directed.? Denies SI/HI/AH/VH. ? Does not appear to be responding to internal stimuli Course Vital Signs Vital signs: Vital Signs Temperature 36.8 C 07/10/24 02:59 Pulse 62 07/10/24 02:59 Respiratory Rate 18 07/10/24 02:59 Blood Pressure 108/77 07/10/24 02:59 Pulse Oximetry 97 07/10/24 02:59 Temperature 36.8 C 07/10/24 02:59 Pulse 62 07/10/24 02:59 Respiratory Rate 18 07/10/24 02:59 Blood Pressure 108/77 07/10/24 02:59 Pulse Oximetry 97 07/10/24 02:59 Pain Level 0 07/10/24 02:59 Medical Decision Making 64yo M with hx gout, HLD, anxiety, presenting for anxiety and insomnia. Vital signs reassuring on arrival. Seen by myself on 06/23/24 when he presented via EMS with these same symptoms; at that time had reassuring workup including EKG and labs. Would not repeat today. I am not concerned for acute coronary syndrome, arrhythmia, pulmonary embolism, psychosis, or other life-threatening pathology. He does not present as manic. At his prior visit he was given a dose of PO ativan in the ED which did improve his symptoms and he was advised to followup with his PCP. Unfortunately he has not been able to see his PCP as he still did not have a working vehicle. When his symptoms recurred this week he did call and was told that they would not prescribe any anxiety medication without seeing him in clinic. He reports that they had appointments available but he did not have a way to get to them. His car was fixed late this afternoon and he drove himself to the ED this evening. He plans to call his PCP on Friday. He has made attempts at appropriate followup and now has the means to actually do so. Review of prescription monitoring system indicates no other active controlled medications. Given this, I do feel comfortable prescribing him a short course of PO ativan (three 0.5mg tablets) with the plan that he see his PCP Friday or Friday for further care. He is agreeable to this plan. Discharged home; discharge instructions and return precautions were reviewed with patient who verbalized understanding. All questions were answered and he is in full agreement with the plan. Medical Records Medical records reviewed: Yes I reviewed the patient's medical records. 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
[2024-07-10 03:32] VITALS: RESP 23
[2024-07-10 03:38] VITALS: BP 110/80; PULSE 77; RESP 18; TEMP 36.8; O2SAT 97
[2024-07-10] MEDS: LORazepam 0.5 MG TAB 1.5 MG PO (03:38)
== END 2024-07-10 03:39 | disposition home or self-care (01) ==
PROVIDERS: Emergency Provider Student in an Organized Health Care Education/Training Program; PCP Student in an Organized Health Care Education/Training Program
DX: G47.00 Insomnia, unspecified (principal); F41.9 Anxiety disorder, unspecified; E78.5 Hyperlipidemia, unspecified; F17.210 Nicotine dependence, cigarettes, uncomplicated
CPT/HCPCS: 99283

== ENCOUNTER 2024-07-19 14:52 | Outpatient (REF) | payer MEDICAID, SELFPAY | END 2024-07-19 14:53 | disposition home or self-care (01) | LOC: NCHCN 14:52 | PROVIDERS: PCP Student in an Organized Health Care Education/Training Program; Visit Provider Student in an Organized Health Care Education/Training Program | DX: F41.9 Anxiety disorder, unspecified (principal) | CPT/HCPCS: 84443 ==

== ENCOUNTER 2024-09-29 06:18 | Emergency (ER) | payer MEDICAID, SELFPAY ==
[2024-09-29 06:22] VITALS: BP 138/79; PULSE 65; RESP 17; TEMP 36.6; O2SAT 97
--- NOTE | 2024-09-29 06:23 | W.ED.GENAD ---
Discharge Plan Disposition Patient Disposition: Home Condition: Good Discharge Details Clinical Impression: Cough, Shortness of breath Primary Care Provider: Guido Mariee ED Provider: Tanner Rick Meds and New Rx's Prescriptions: New prednisone 20 mg tablet 40 mg PO DAILY Qty: 8 0RF albuterol sulfate 2.5 mg /3 mL (0.083 %) solution for nebulization 2.5 mg inhalation QID PRN (Reason: shortness of breath or wheezing) Qty: 75 0RF Continued atorvastatin 10 mg tablet 10 mg PO DAILY allopurinol 100 mg Tablet 100 mg PO DAILY magnesium 500 mg tablet 500 mg PO DAILY multivitamin [Daily Multi-Vitamin] Tablet 1 tab PO DAILY zolpidem 5 mg tablet 5 mg PO QHS Patient Comments: TAKE ONE TABLET BY MOUTH EVERY EVENING 30 MINUTES PRIOR TO BEDTIME NEEDED FOR INSOMNIA famotidine 20 mg tablet 20 mg PO BID Patient Comments: TAKE ONE TABLET BY MOUTH TWICE A DAY buspirone 5 mg tablet 10 mg PO TID Patient Comments: TAKE 2 TABLETS BY MOUTH UP TO THREE TIMES A DAY melatonin 3 mg capsule 3 mg PO HS PRNQty: 7 0RF lorazepam 0.5 mg Tablet 1.5 mg PO .FOR HOME USE-0.5MG Qty: 1 0RF Discharge Instructions Additional Instructions: He was seen in the ED for cough and increased shortness of breath over the last few days. Your chest x-ray does not show evidence of pneumonia but does show emphysematous changes. This is likely viral in nature but because of your smoking and changes on chest x-ray we will do a short burst of prednisone as well as provide new prescription for albuterol to use with your nebulizer machine. Do attempt to cut back on your smoking. Follow-up with your primary care next week for recheck. Return to ED for any increased shortness of breath, chest pain, fever, mental status change, other concerns. Referrals: Guido Mariee [Primary Care Provider] - [facility] General Mode of arrival: ambulatory. Date/Time Provider Initiated Documentation: 09/29/24 06:23. Limitations to Documentation: no limitations. Information obtained by: patient and RN notes reviewed. HPI Narrative: Patient presents to ED with complaint of cough productive of green sputum, shortness of breath, chills but no documented fever. Reports symptoms ongoing for 3 to 5 days. Denies any chest pain or back pain. Denies any abdominal pain or GI symptoms. He is a smoker. He denies headache, earache, sore throat, congestion. Related Data Home Medications ?Medication ?Instructions ?Recorded ?Confirmed allopurinol 100 mg tablet 100 mg PO DAILY 10/30/22 09/29/24 melatonin 3 mg capsule 3 mg PO HS PRN #7 caps 03/19/23 09/29/24 atorvastatin 10 mg tablet 10 mg PO DAILY 05/29/23 09/29/24 magnesium 500 mg tablet 500 mg PO DAILY 06/26/23 09/29/24 multivitamin (Daily Multi-Vitamin 1 tab PO DAILY 06/26/23 09/29/24 tablet) lorazepam 0.5 mg tablet 1.5 mg (3 x 0.5 mg) PO .FOR HOME 07/10/24 09/29/24 USE-0.5MG #1 tab albuterol sulfate 2.5 mg/3 mL 2.5 mg (3 mL) inhalation QID PRN 09/29/24 (0.083 %) solution for nebulization shortness of breath or wheezing #75 mL buspirone 5 mg tablet 10 mg PO TID 09/29/24 09/29/24 famotidine 20 mg tablet 20 mg PO BID 09/29/24 09/29/24 prednisone 20 mg tablet 40 mg (2 x 20 mg) PO DAILY #8 tabs 09/29/24 zolpidem 5 mg tablet 5 mg PO QHS 09/29/24 09/29/24 Previous Rx's ?Medication ?Instructions ?Recorded melatonin 3 mg capsule 3 mg PO HS PRN #7 caps 03/19/23 lorazepam 0.5 mg tablet 1.5 mg (3 x 0.5 mg) PO .FOR HOME 07/10/24 USE-0.5MG #1 tab albuterol sulfate 2.5 mg/3 mL 2.5 mg (3 mL) inhalation QID PRN 09/29/24 (0.083 %) solution for nebulization shortness of breath or wheezing #75 mL prednisone 20 mg tablet 40 mg (2 x 20 mg) PO DAILY #8 tabs 09/29/24 Allergies Allergy/AdvReac Type Severity Reaction Status Date / Time Lanolin (Wool alcohols) Allergy Unknown unknown Verified 07/10/24 03:03 Penicillins Allergy Unknown Other (See Verified 07/10/24 03:03 Comment) General SHEELA: 3 Exam Narrative Exam Narrative: Const: WDWN male in NAD. VS per triage. HEENT: NC/AT. Normal facial exam. Neck: Supple. Trachea midline. Lungs: Normal respiratory effort. Lungs are clear. Cor: RRR without murmur. Good radial pulses. Neuro: A+O x 3. Normal speech, mentation, gait. Cranial nerves II - XII grossly intact. No gross motor or sensory deficit. Medical Decision Making Patient presenting to ED with concern for bronchitis/pneumonia since he has had increased cough and shortness of breath, green sputum and reported chills but no fever. He has had no chest pain or pressure. Denies any abdominal pain or vomiting. Denies any other URI type symptoms. He is a smoker. He looks well. His vital signs are normal and his O2 saturations are normal. His lungs are clear throughout. He is not having any type of chest pain or pressure. This is likely viral in nature but I will obtain a two-view chest x-ray to evaluate for possible pneumonia. Chest x-ray per my read with significant emphysematous changes especially in the left lung which appears to have some bullae present. No evidence of pneumonia and no pneumothorax appreciated. No real significant change compared to chest x-ray from June of this year. Will hold off on antibiotics. Despite lack of wheezing this morning complaints of increased cough and shortness of breath with that chest x-ray suggest some COPD exacerbation. Will give a short burst of prednisone. He does have a nebulizer machine at home but no albuterol so we will also provide prescription for this. Patient to contact primary care for follow-up next week for recheck. Return precautions provided. 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
[2024-09-29 06:28] VITALS: BP 131/88; PULSE 67; RESP 19; TEMP 36.5; O2SAT 97
--- NOTE | 2024-09-29 07:10 | DI.VRAD_ITS ---
PROCEDURE INFORMATION: Exam: XR Chest Exam date and time: 09/29/2024 7:00 AM Age: 64 years old Clinical indication: Cough TECHNIQUE: Imaging protocol: Radiologic exam of the chest. Views: 2 views. COMPARISON: CR XR CHEST 2V PA LATERAL 06/23/2024 3:57 AM FINDINGS: Lungs: No focal consolidation seen. Bullae/blebs again noted. Pleural spaces: No large pleural effusion seen. Heart/Mediastinum: No cardiomegaly. Bones/joints: No acute abnormality. IMPRESSION: No acute findings to explain reported symptoms. Dictated and Authenticated by: Madison Blackburn MD. Orderin Prabhjot Hart MD
--- NOTE | 2024-09-29 07:11 | DI.RAD_ITS ---
Exam(s) XR CHEST 2V PA LATERAL EXAM: XR CHEST 2V PA LATERAL CLINICAL HISTORY: cough, SOB TECHNIQUE: 2D digital imaging was performed. Two views. COMPARISON: CR,XR XR CHEST 2V PA LATERAL from 06/23/2024 FINDINGS: HEART: Normal size. Aorta: Not dilated. PULMONARY VASCULATURE: Normal. MEDIASTINUM: Unremarkable. LUNGS: Emphysematous changes, greater at the lung apices, with large bulla/blebs.. No evidence of in filtrate or pulmonary edema. PLEURAL SPACE: No pleural effusion or pneumothorax. BONE:Unremarkable for age. SOFT TISSUES: Unremarkable. IMPRESSION: Emphysematous changes. No acute abnormality. DATA REPOSITORY: RADIATION DOSE DELIVERED:
== END 2024-09-29 07:26 | disposition home or self-care (01) ==
PROVIDERS: Emergency Provider Emergency Medicine; PCP Student in an Organized Health Care Education/Training Program
DX: R06.02 Shortness of breath (principal); R05.9 Cough, unspecified; F17.210 Nicotine dependence, cigarettes, uncomplicated
CPT/HCPCS: 99283 ×2; 71046

== ENCOUNTER 2024-11-11 16:14 | Outpatient (REF) | payer MEDICAID, SELFPAY ==
[2024-11-11 19:59] LABS: ALT 22 U/L (16-63); AST 13 U/L (15-37); Albumin 3.6 g/dL (3.4-5.0); Alkaline Phosphatase 139 U/L (46-116); Anion Gap 6.5 mmol/L (3-11); BUN 9 mg/dL (7-18); Bilirubin, Total 0.3 mg/dL (0.2-1.0); CO2 30.5 mmol/L (21.0-32.0); Calcium 9.4 mg/dL (8.5-10.1); Calculated LDL 87 mg/dL (<100); Chloride 104 mmol/L (98-107); Cholesterol 165 mg/dL (<200); Estimated GFR 102.89 (mL/min/1.73m2); Glucose 90 mg/dL (74-106); HDL Cholesterol 39 mg/dL (>or=40); Potassium 4.6 mmol/L (3.5-5.1); Sodium 141 mmol/L (136-145); Total Protein 7.3 g/dL (6.4-8.2); Triglyceride 195 mg/dL (<150)
== END 2024-11-11 16:15 | disposition home or self-care (01) ==
LOC: NCHCN 16:14
PROVIDERS: PCP Student in an Organized Health Care Education/Training Program; Visit Provider Student in an Organized Health Care Education/Training Program
DX: I25.10 Atherosclerotic heart disease of native coronary artery without angina pectoris (principal)
CPT/HCPCS: 80053; 80061

== ENCOUNTER 2024-11-26 00:24 | Outpatient (CLI) | payer MEDICAID, SELFPAY ==
--- NOTE | 2024-11-26 | DI.CTLCSR_ITS ---
Exam(s) CT CHEST LUNG CANCER SCREEN EXAM: CT CHEST LUNG CANCER SCREEN CLINICAL HISTORY: Nicotine dependence due to cigarettes, F17.210; screening TECHNIQUE: Imaging Protocol: Axial computed tomography images with coronal and sagittal reformatted images were created and reviewed. Low dose screening protocol. COMPARISON: CT LOW DOSE CT LUNG CANCER SCREENING from 05/21/[address] CHEST LUNG CANCER SCREEN from 06/10/2023 FINDINGS: Tracheobronchial tree: No bronchiectasis or mucus plugging. Mediastinum and Sheba: No dominant adenopathy or fluid collection. Pulmonary parenchyma: No consolidation or dominant measurable mass. Multiple large bulla are again noted at the left lung apex and left anterior upper lobe extending down to the level of the lung base, anterior to the heart. This appeared to causes deformity of the mid anterior aspects of the ventricles. This appears unchanged from 2023 the has significantly increased from 2019. The bulla at the medial left lung base is increased significantly in size since 2019. No significant interstitial changes. Lung Nodules: None. Pleura: No effusion. No pneumothorax. Heart: The heart is not dilated. Mild coronary artery calcifications are seen. No pericardial effusion. Aorta: Ascending aorta measures 4.3 cm. Upper abdomen: Unremarkable. Bones: Unremarkable for age. Soft Tissues: Unremarkable. IMPRESSION: No suspicious pulmonary nodules. Lung RADS Cat 1 - Negative: No nodules and definitely benign nodules Lung-RADS 1.0 CATEGORIES: Category 0 - Prior chest CT exam(s) being located for comparison. Category 1 - Annual screening in 12 months. No nodules or definitely benign nodules. Category 2 - Annual screening in 12 months. Benign appearance. Nodules with low likelihood of becoming active cancer. Category 3 - 6-month follow-up. Probably benign. Short-term follow-up suggested. Nodules with low likelihood of becoming active cancer. Category 4A - 3-month follow-up and CT/PET if >8 mm in size. Suspicious finding. Findings which require additional testing. Category 4B - Findings which require additional testing and tissue sampling. Category 4X - Category 3 or 4 nodules with additional features or imaging findings that increases the suspicion of malignancy. Modifier S- Potentially clinically significant findings (non lung cancer) RADIATION DOSE DELIVERED: 78.45mGy.cm Total DLP DATA REPOSITORY: All CT scans at this facility are submitted to the National Radiology Data Registry (NRDR) Dose Index Registry (DIR) with the [employer] (A[employer]). RADIATION OPTIMIZATION: All CT scans at this facility use at least one of these dose optimization techniques: automated exposure control; mA and/or kV adjustment per patient size (includes targeted exams where dose is matched to clinical indication); or iterative reconstruction.
== END 2024-11-26 00:44 ==
LOC: DI 00:24
PROVIDERS: PCP Student in an Organized Health Care Education/Training Program; Visit Provider Student in an Organized Health Care Education/Training Program
DX: Z12.2 Encounter for screening for malignant neoplasm of respiratory organs (principal); F17.210 Nicotine dependence, cigarettes, uncomplicated
CPT/HCPCS: 71271